=== PATIENT | male | born 1970 | race Caucasian/White ===

== ENCOUNTER 2022-03-08 14:24 | Emergency (ER) | payer OTHER, SELFPAY ==
[2022-03-08] VITALS (9 sets, daily range): BP systolic 119–167; BP diastolic 86–104; PULSE 58–71; RESP 18; TEMP 36.7; O2SAT 97–98; BMI 24.4
--- NOTE | 2022-03-08 15:16 | ED_ITS ---
HPI - Neuro Symptoms/Deficit General Chief Complaint: Neuro Symptoms/Altered Deficit Stated Complaint: Confusion episodes for 1 week Time Seen by Provider: 03/08/22 15:11 History of Present Illness HPI Narrative: 51-year-old male patient presents emergency department with complaints of n onspecific lethargy, troubles concentrating, intermittent headaches and fatigue for approximately 1 week. The patient reports episodes similar to as ?passing out? last for approximately 5-10 seconds and resolved without intervention. He has had no trauma or injury. He denies infectious concerns or complaints. The patient has had similar symptoms in the past approximately 8 years prior. At that time, the patient's records report that he was diagnosed with vestibular neuritis, however the patient reports that he was diagnosed with stroke. There appears to be some notes from the patient's primary to consider an EEG which does not appear to have been performed in the past due to insurance concerns. The patient denies chest pain, shortness a breath, abdominal pain, or nausea and vomiting. He reports that at the onset of symptoms he develops clamminess/sweat. He denies significant associations. See nursing notes for complete details. Related Data Previous Rx's Medication Instructions Recorded levetiracetam 750 mg tablet 750 mg PO BID #60 tabs 03/08/22 (Keppra) Allergies Allergy/AdvReac Type Severity Reaction Status Date / Time No Known Drug Allergies Allergy Verified 03/08/22 14:54 Review of Systems Const: Denies: fever, chills, fatigue or malaise ENMT: Denies: vertigo Cardio: Denies: chest pain, palpitations or shortness of breath with exertion Resp: Denies: shortness of breath or cough GI: Denies: abdominal pain, nausea, vomiting, diarrhea or constipation Musculo: Denies: muscle weakness Neuro: Denies: headache, numbness in extremities, weakness in extremities, lack of coordination, dizziness or vertigo Psych: Denies: anxiety Endo: Denies: fatigue PFSH PFSH Social History Smoking Status: Never smoker Do you use any of these nicotine containing products: None Second hand tobacco smoke exposure: No How often do you have a drink containing alcohol: 4 or more times a week How many standard drinks containing alcohol do you have on a typical day: 1 or 2 AUDIT-C Alcohol total score: 4 Non-prescribed substance use: denies use service: No Exam Const: Vital Signs, click to edit/add: Vital Signs - 24 hr 03/08/22 14:56 03/08/22 16:18 03/08/22 16:20 Temperature 98.1 F Pulse Rate [Right Pulse Oximeter] 71 Respiratory Rate 18 Blood Pressure [Ri ght Upper Arm] 167/104 H Pulse Oximetry 97 98 98 Oxygen Delivery Me thod Room Air Room Air Room Air 03/08/22 15:40 03/08/22 16:00 03/08/22 16:20 Temperature 98.1 F 98.1 F 98.1 F Pulse Rate [Right Pulse Oximeter] 71 62 61 Respiratory Rate 18 18 18 Blood Pressure [Ri ght Upper Arm] 131/88 147/87 H 128/89 Pulse Oximetry 98 98 98 Oxygen Delivery Me thod Room Air Room Air Room Air 03/08/22 16:40 03/08/22 17:00 03/08/22 17:20 Temperature 98.1 F 98.1 F 98.1 F Pulse Rate [Right Pulse Oximeter] 59 L 58 L 71 Respiratory Rate 18 18 18 Blood Pressure [Ri ght Upper Arm] 146/88 H 134/86 119/86 Pulse Oximetry 98 98 98 Oxygen Delivery Me thod Room Air Room Air Room Air Documenting provider has reviewed patient's vital signs: yes Common normals: no apparent distress, oriented x3, alert and well nourished General appearance: cooperative, comfortable, well kempt and well developed Orientation/consciousness: Yes awake, Yes oriented to person, Yes oriented to place and Yes oriented to time HENMT: Common normals: normocephalic Head and scalp: normal to inspection and normocephalic Eye: Common normals: PERRL and EOMs intact bilaterally Pupil: PERRL Neck & C-Spine: Common normals: full ROM and supple Resp: Common normals: normal respiratory effort, no use of accessory muscles and clear to auscultation bilaterally Effort & inspection: able to speak in complete sentences Auscultation: clear to auscultation bilaterally Cardio: Common normals: regular rate, regular rhythm, S1 normal heart sound, S2 normal heart sound, no gallops, no clicks and no murmurs Rate: regular rate Rhythm: regular rhythm Heart sounds: S1 normal and S2 normal GI: Common normals: Normal to inspection, nondistended, normoactive bowel sounds present, soft to palpation and non-tender Palpation: soft Extremity: Common normals: normal to inspection, full ROM, normal capillary refill and no clubbing, cyanosis or edema Neuro: [place] Coma Scale: document GCS findings Saman coma scale eye opening: Spontaneous (4) [place] coma scale verbal response: Orientated (5) Saman coma scale motor response: Obey commands (6) [place] coma scale total score: 15 Common normals: oriented x3, CN's II-XII intact bilaterally, moves all extremities, no focal motor deficits and no sensory deficits noted Sensorium/orientation: awake, alert, oriented to person, oriented to place and oriented to time Coordination/balance: [id number] test normal Coordination: [id number] test normal Psych: Common normals: mental status grossly normal, thought process normal, cooperative, affect normal, speech normal and activity/motor behavior normal Appearance: well kempt Speech: normal speech Thought process: normal thought process Insight: insight good Judgement: judgment good Skin: Common normals: no rashes or lesions noted General skin exam: no rashes or lesions noted Course Course Hospital Course: Paul arrived to the emergency department with complaints of neurologic symptoms and altered mental status. The patient has had multiple episodes today. Each episode has lasted about 10-15 seconds and has had multiple episodes while in the emergency department. The patient had to be encouraged to remain in the emergency department for evaluation and treatment as in between episodes his symptoms completely resolved. The symptoms are similar to his previous episode approximately 10 years prior, although not exactly the same. He was encouraged to actually complete the evaluation and workup as well as continue in the outpatient setting with the follow-up as recommended for Neurology. He is loaded with Keppra per consulting neurology's recommendation and given a prescription at discharge. The patient strongly encouraged to establish primary care physician as well as to follow up with Neurology to determine the etiology of these concerns. He is strongly advised to not operate machinery or drive while evaluation for potential seizure disorder is underway. Reevaluation(s) Reevaluation #1: Repeat episodes witnessed by nursing staff and patient's son. The patient had 10-15sec of blank stare with pulling at lines/pulse oximetry that resolved without intervention. During the episode the cardiac monitoring noted no changes in rhythm and the patient's oxygenation did not drop. Time: 16:56 Reevaluation #2: Patient reports resolution of symptoms. Patient's vital signs have remained stable. The results were discussed, and the patient verbalized understanding. Reasons for follow-up or return were discussed. Time: 19:37 Consultations Consultation #1: Neurology called to discuss episodes c/w partial complex seizure. Recommendations for treatment and follow-up. Time: 16:56 Vital Signs Vital signs: Initial Vital Signs Temperature 98.1 F 03/08/22 14:56 Temperature Source Temporal Artery Scan 03/08/22 14:56 Pulse Rate 71 03/08/22 14:56 Respiratory Rate 18 03/08/22 14:56 Blood Pressure 167/104 H 03/08/22 14:56 Blood Pressure Mean 125 03/08/22 14:56 Blood Pressure Position Sitting 03/08/22 14:56 Pulse Oximetry 97 03/08/22 14:56 Oxygen Delivery Method 03/08/22 14:56 Vital Signs Temperature 98.1 F 03/08/22 14:56 Pulse Rate 71 03/08/22 14:56 Respiratory Rate 18 03/08/22 14:56 Blood Pressure 167/104 H 03/08/22 14:56 Pulse Oximetry 97 03/08/22 14:56 Oxygen Delivery Method 03/08/22 14:56 Temperature 98.1 F 03/08/22 17:20 Pulse Rate 71 03/08/22 17:20 Respiratory Rate 18 03/08/22 17:20 Blood Pressure 119/86 03/08/22 17:20 Pulse Oximetry 98 03/08/22 17:20 Oxygen Delivery Method 03/08/22 17:20 MDM - Neuro Symptoms/Deficit MDM Narrative Medical decision making narrative: Life-threatening differential diagnoses include: CVA, CAD, infectious etiology, or electrolyte abnormalities. Additional differentials include but not limited to hepatic encephalopathy, seizure, vestibular neuritis, or migraine. Medical Records Attestation: I reviewed the patient's medical records. Lab Data Attestation: I reviewed the patient's lab results. Labs: Lab Results 03/08/22 03/08/22 Range/Units 16:15 16:15 WBC 8.15 (4.50-11.00) K/uL RBC 4.72 (4.30-5.90) m/uL Hgb 14.8 (13.5-17.5) gm/dL Hct 44.5 (37.0-53.0) % MCV 94 (80-100) fL MCH 31 (26-34) pg MCHC 33 (32-36) gm/dL RDW Coeff of Laila 12.4 (11.5-15.5) % Plt Count 215 (140-440) K/uL Neut % (Auto) 78.4 H (42.0-72.0) % Lymph % (Auto) 13.9 L (20-44) % Mercer % (Auto) 4.4 (0.0-11.0) % Eos % (Auto) 2.9 (0.0-7.0) % Baso % (Auto) 0.4 (0.0-3.0) % Neut # (Auto) 6.40 (1.7-7.0) K/uL Lymph # (Auto) 1.10 (0.90-2.90) K/uL Mercer # (Auto) 0.40 (0.00-0.90) K/UL Eos # (Auto) 0.24 (0.00-0.50) K/uL Baso # (Auto) 0.03 (0.00-0.30) K/uL Abs Immat Gran (auto) 0.00 (0.00-0.30) K/uL Sodium 138 (135-149) mmol/L Potassium 4.1 (3.6-5.1) mmol/L Chloride 106 (96-114) mmol/L Carbon Dioxide 28 (20-32) mmol/L BUN 17 (5-24) mg/dL Creatinine 0.9 (0.5-1.5) mg/dL Estimated Creat Clear 99.29 Estimated GFR 105 ml/min Glucose 99 (60-115) mg/dL Calcium 9.2 (8.4-10.6) mg/dL Total Bilirubin 0.4 (0.1-1.5) mg/dL AST 21 (12-35) U/L ALT 19 (4-50) U/L Alkaline Phosphatase 60 (40-150) U/L Total Protein 7.2 (6.0-8.3) g/dL Albumin 4.4 (3.3-5.0) g/dL ECG Data Attestation: I personally reviewed and interpreted this ECG as follows: (NSR with normal intervals and axis without significant ST-T wave changes. HR 66bpm.) Prior ECG tracings: not available for review Discharge Plan Discharge Clinical Impression: Complex partial seizure Patient Disposition: Home, Self-Care Condition: Improved Instructions: New-Onset Seizure in Adults (ED) Additional Instructions: Thank you for choosing [facility] for your care today. Your care today was on an emergency basis and is not intended to be a substitute for on-going care with your primary physician. I recommend calling primary care for follow- up in the next 3-5 days for follow-up as needed and to review any labs, testing, or imaging you have had in the Emergency Department. If new or worsening symptoms develop or you have any concerns in the meantime, please call your primary care clinic or return to the ER for re-evaluation. Activity Level: Other Activity Detail: Do not drive or operate machinery until reevaluated by neurology. Discharge Diet: Heart Healthy (2 gm sodium, low fat) Prescriptions: New levetiracetam [Keppra] 750 mg tablet 750 mg PO BID Qty: 60 2RF Follow Up/Referrals: Pranav Truong MD [Primary Care Provider] - Stand Alone Forms: [employer] Info Instructions
--- NOTE | 2022-03-08 15:48 | CRLHL7_ITS ---
For Patients: As a result of the Century Cures Act, medical imaging exams and procedure reports are released immediately into your electronic medical record. You may view this report before your referring provider. If you have questions, please contact your health care provider. INDICATION: Near-syncope. TECHNIQUE: CT head without contrast. COMPARISON: August 03, 2014. FINDINGS: CSF spaces: Within normal limits for age. Brain parenchyma and extra-axial spaces: The morrell-white differentiation is normal. Focal hyperdensity in the posterior parietal white matter on the left slightly increased in size since the prior exam from August 03, 2014 likely chronic benign calcification. Additional periventricular calcification along the posterior right lateral ventricle (/). No sign of mass, hemorrhage, or midline shift. No extra-axial fluid collection. Skull base and calvarium: The visualized paranasal sinuses and mastoid air cells demonstrate no acute or significant findings. The visualized orbits are grossly unremarkable. No skull fractures. IMPRESSION: No acute intracranial process identified. Please note that all CT scans at this facility use dose modulation, iterative reconstruction, and/or weight-based dosing when appropriate to reduce radiation dose to as low as reasonably achievable. Dictated by Maulik Villanueva MD @ 03/08/2022 4:51:29 PM (Electronically Signed)
[2022-03-08 16:23] LABS: Basophils Absolute Auto 0.03 K/uL (0.00-0.30); Basophils Percent Auto 0.4 % (0.0-3.0); Eosinophils Absolute Auto 0.24 K/uL (0.00-0.50); Eosinophils Percent Auto 2.9 % (0.0-7.0); Hematocrit 44.5 % (37.0-53.0); Hemoglobin* 14.8 gm/dL (13.5-17.5); Lymphocytes Percent Auto 13.9 % (20-44); Mean Corpuscular HGB Conc 33 gm/dL (32-36); Mean Corpuscular Hemoglobin 31 pg (26-34); Mean Corpuscular Volume 94 fL (80-100); Monocytes Percent Auto 4.4 % (0.0-11.0); Neutrophils Percent Auto 78.4 % (42.0-72.0); Platelet Count* 215 K/uL (140-440); RDW Coefficient of Variation % 12.4 % (11.5-15.5); Red Blood Count 4.72 m/uL (4.30-5.90); White Blood Count* 8.15 K/uL (4.50-11.00)
[2022-03-08 16:28] LABS: Slide Review Reflex No
[2022-03-08 16:48] LABS: Albumin* 4.4 g/dL (3.3-5.0); Chloride* 106 mmol/L (96-114); Sodium* 138 mmol/L (135-149)
[2022-03-08 16:49] LABS: Potassium* 4.1 mmol/L (3.6-5.1)
[2022-03-08 16:51] LABS: Alanine Aminotransferase* 19 U/L (4-50); Alkaline Phosphatase* 60 U/L (40-150); Aspartate Amino Transferase* 21 U/L (12-35); Bilirubin Total* 0.4 mg/dL (0.1-1.5); Blood Urea Nitrogen* 17 mg/dL (5-24); Carbon Dioxide* 28 mmol/L (20-32); Creatinine* 0.9 mg/dL (0.5-1.5); Est. Creatinine Clearance* 99.29; Estimated Glomerular Filt Rate 105 ml/min; Glucose* 99 mg/dL (60-115); Total Protein* 7.2 g/dL (6.0-8.3)
[2022-03-08 16:52] LABS: Calcium* 9.2 mg/dL (8.4-10.6)
--- NOTE | 2022-03-08 17:14 | CRLHL7_ITS ---
For Patients: As a result of the Century Cures Act, medical imaging exams and procedure reports are released immediately into your electronic medical record. You may view this report before your referring provider. If you have questions, please contact your health care provider. INDICATION: Altered mental status. TECHNIQUE: Multiplanar multisequence noncontrast MR images acquired through the brain as a seizure protocol. COMPARISON: CT brain 03/08/2022. FINDINGS: The ventricles and sulci are within normal limits for patient age. No mass effect or midline shift. Peripherally T2 hypointense, centrally T2 hyperintense lesion demonstrating susceptibility blooming within the deep left parietal white matter measuring 1.2 cm (series 3, image 25). Heterogeneous intralesional T1 shortening. No perilesional FLAIR hyperintensity. Two punctate T2 FLAIR hyperintensities in the right parietal white matter, nonspecific though most typical for sequelae of minimal chronic microvascular ischemic changes or migraine headaches. No recent intracranial hemorrhage or pathologic extra-axial fluid collection. No diffusion restriction to suggest acute infarction. The hippocampal formations are symmetric in size and signal intensity. No evidence for cortical dysplasia, cortical encephalomalacia, or encephalocele. The major arterial flow voids of the skullbase are preserved. The globes are symmetric. Minimal right maxillary sinus mucosal thickening. The mastoid air cells are clear. IMPRESSION: 1. No acute infarction, mass effect, or recent intracranial hemorrhage. 2. No cortical structural or migration abnormality. 3. Mixed signal intensity 1.2 cm lesion in the deep left parietal white matter, most compatible with a cavernous malformation. No perilesional edema. 4. Two punctate T2 FLAIR hyperintensities in the right parietal white matter, nonspecific though most typical for sequelae of minimal chronic microvascular ischemic changes or migraine headaches. Dictated by Flako Christensen MD @ 03/08/2022 6:32:45 PM (Electronically Signed)
== END 2022-03-08 20:00 | disposition home or self-care (01) ==
PROVIDERS: Emergency Provider Family Medicine; PCP Family Medicine
DX: G40.209 Localization-related (focal) (partial) symptomatic epilepsy and epileptic syndromes with complex partial seizures, not intractable, without status epilepticus (principal)
CPT/HCPCS: 36415; 70450; 70551; 80053; 80306; 81001; 82947; 85025; 93005; 96365; 99284; 99285; J1953

== ENCOUNTER 2022-05-06 11:10 | Outpatient (CLI) | payer OTHER, SELFPAY | END 2022-05-06 11:11 | disposition home or self-care (01) | PROVIDERS: PCP Family Medicine; Visit Provider Internal Medicine | DX: Z12.11 Encounter for screening for malignant neoplasm of colon (principal); K63.5 Polyp of colon | CPT/HCPCS: 45380; 88305; J2250; J3010 ==

== ENCOUNTER 2024-06-26 05:07 | Outpatient (CLI) | payer OTHER, SELFPAY | END 2024-06-26 05:08 | disposition home or self-care (01) | LOC: AMB 06-27 02:59 | PROVIDERS: PCP Family Medicine; Visit Provider Family Medicine | DX: G40.909 Epilepsy, unspecified, not intractable, without status epilepticus (principal) | CPT/HCPCS: A0425; A0427 ==

== ENCOUNTER 2024-06-26 05:47 | Emergency (ER) | payer OTHER, SELFPAY ==
[2024-06-26] VITALS (16 sets, daily range): BP systolic 116–148; BP diastolic 83–130; PULSE 70–82; RESP 16–18; TEMP 36.7; O2SAT 95–98; BMI 24.4
--- NOTE | 2024-06-26 05:56 | CRLHL7_ITS ---
For Patients: As a result of the Century Cures Act, medical imaging exams and procedure reports are released immediately into your electronic medical record. You may view this report before your referring provider. If you have questions, please contact your health care provider. INDICATION: Seizure. COMPARISON: 03/08/2022 CT and MRI TECHNIQUE: CT of the brain / head without intravenous contrast. Multiplanar axial, coronal, and sagittal reformats were reconstructed. FINDINGS: No intracranial hemorrhage. Focal hyperdensity in the periventricular white matter along the left posterior horn is similar to the exam in 2021. Prior MRI was consistent with a cavernous malformation and that is consistent with what is seen today. No acute or subacute cortically based infarct. No mass or mass effect. Normal ventricles. No skull fractures. No worrisome focal bone lesion. IMPRESSION: No acute findings. Unchanged hyperdensity in the left periventricular white matter consistent with a previously identified cavernous malformation. Please note that all CT scans at this facility use dose modulation, iterative reconstruction, and/or weight-based dosing when appropriate to reduce radiation dose to as low as reasonably achievable. Dictated by Gabby Veronica MD @ 06/26/2024 6:35:24 AM (Electronically Signed)
--- NOTE | 2024-06-26 05:56 | CRLHL7_ITS ---
For Patients: As a result of the Cures Act, medical imaging exams and procedure reports are released immediately into your electronic medical record. You may view this report before your referring provider. If you have questions, please contact your health care provider. INDICATION: Seizure, fall. COMPARISON: Same-day head CT TECHNIQUE: CT of the cervical spine without contrast. Multiplanar axial, coronal, and sagittal reformats were reconstructed. FINDINGS: No fracture. Normal alignment. [id number] multilevel disc degenerative change. Mild facet arthritis. No neural foraminal narrowing. No central canal stenosis. No destructive bony lesions. Lipoma in the right anterior neck anterior to the sternocleidomastoid muscles and superficial to the strap muscles. This measures about 4 x 2 x 5 cm. The internal fat is less complex than the adjacent subcutaneous fat. No solid nodular components identified. IMPRESSION: No acute or traumatic findings on cervical spine CT. Please note that all CT scans at this facility use dose modulation, iterative reconstruction, and/or weight-based dosing when appropriate to reduce radiation dose to as low as reasonably achievable. Dictated by Gabby Veronica MD @ 06/26/2024 6:38:23 AM (Electronically Signed)
--- NOTE | 2024-06-26 05:56 | CRLHL7_ITS ---
For Patients: As a result of the Cures Act, medical imaging exams and procedure reports are released immediately into your electronic medical record. You may view this report before your referring provider. If you have questions, please contact your health care provider. INDICATION: Fall COMPARISON: None. TECHNIQUE: Three view lumbar spine radiographs including AP, lateral, lateral lumbosacral spot. FINDINGS: Normal vertebral body segmentation and formation. No fracture. Normal alignment. Mild L5-S1 disc space narrowing. No facet arthritis. Normal bone mineralization. No focal bone lesions. Paraspinal soft tissues are normal. IMPRESSION: Mild disc degeneration in the lower lumbar spine. No acute findings. Dictated by Gabby Veronica MD @ 06/26/2024 6:42:31 AM (Electronically Signed)
--- NOTE | 2024-06-26 05:56 | CRLHL7_ITS ---
For Patients: As a result of the Century Cures Act, medical imaging exams and procedure reports are released immediately into your electronic medical record. You may view this report before your referring provider. If you have questions, please contact your health care provider. INDICATION: Seizure TECHNIQUE: 1 view chest radiograph COMPARISON: None. FINDINGS: Devices: None. Lung volumes are good. No focal or diffuse opacities. No pleural effusion. No pneumothorax. Heart size is normal. Osseous structures appear normal. IMPRESSION: Normal chest radiograph. Dictated by Gabby Veronica MD @ 06/26/2024 6:41:33 AM (Electronically Signed)
--- NOTE | 2024-06-26 05:57 | ED_ITS ---
HPI - Seizure General Time Seen by Provider: 05:57 <Lashell Byers MD - Last Filed: 06/26/24 07:27> Date Seen: 06/26/24 <Lashell Byers MD - Last Filed: 06/26/24 07:27> Chief Complaint: Seizure <Lashell Byers MD - Last Filed: 06/26/24 07:27> Stated Complaint: seizure <Lashell Byers MD - Last Filed: 06/26/24 07:27> Time Seen by Provider: 06/26/24 05:55 <Lashell Byers MD - Last Filed: 06/26/24 07:27> Source: patient, EMS and RN notes reviewed <Lashell Byers MD - Last Filed: 06/26/24 07:27> Mode of arrival: EMS <Lashell Byers MD - Last Filed: 06/26/24 07:27> Limitations: altered mental status <Lashell Byers MD - Last Filed: 06/26/24 07:27> History of Present Illness HPI Narrative: Paul is a 53-year-old gentleman with a history of seizure disorder however not tonic clonic in the past who comes to the emergency room via EMS after having a 10 minute seizure at home. Paul does not recall any of the events. EMS tells me they were called to the home and his states that she heard Paul call out and then a thump when he fell in the bathroom while getting ready for work. He then experience full body shaking with some foaming at the mouth. Upon EMS arrival they note that he was borderline combative but they were able to coax him into the ambulance, a blood sugar check was normal, they did give him Zofran 4 mg for nausea. Here in the emergency room his confusion that EMS described as somewhat clearing. He is able to tell us that his last seizure was a year ago. He is not currently on any medications for seizure disorder. He notes occasional alcohol use but nothing recent. He notes no injury recently. He denies any prodromal symptoms. At this time patient complains of low back pain, neck pain and headache. He denies visual changes or abdominal pain. Denies any numbness or tingling of the extremities. Movement definitely increases his discomfort and we put a C-collar on upon his arrival. <Lashell Byers MD - Last Filed: 06/26/24 07:27> Related Data Home Medications: Home Medications ?Medication ?Instructions ?Recorded ?Confirmed peg 3350-electrolytes 236 240 ml PO Q10M 04/08/22 gram-22.74 gram-6.74 gram-5.86 gram solution (Golytely) Previous Rx's ?Medication ?Instructions ?Recorded levetiracetam 750 mg tablet 750 mg PO BID #60 tabs 03/08/22 (Keppra) peg 3350-electrolytes 236 240 ml PO Q10M #4,000 mL 04/06/22 gram-22.74 gram-6.74 gram-5.86 gram solution (Golytely) <Lashell Byers MD - Last Filed: 06/26/24 07:27> Allergies/Adverse Reactions: Allergies Allergy/AdvReac Type Severity Reaction Status Date / Time No Known Drug Allergies Allergy Verified 04/06/22 15:08 <Lashell Byers MD - Last Filed: 06/26/24 07:27> Review of Systems Status of ROS: Reports: 10 or more systems reviewed and unremarkable except as noted in History and below <Lashell Byers MD - Last Filed: 06/26/24 07:27> [facility] Social History: Social History Smoking Status: Current every day smoker Do you use any of these nicotine containing products: None Second hand tobacco smoke exposure: No How often do you have a drink containing alcohol: 4 or more times a week How many standard drinks containing alcohol do you have on a typical day: 1 or 2 AUDIT-C Alcohol total score: 4 Non-prescribed substance use: denies use service: No <Lashell Byers MD - Last Filed: 06/26/24 07:27> Exam Narrative: Exam Narrative: Paul is awake alert obeying commands. He has a GCS of 14-15. Has some slight confusion when answering questions such as where he works. However, he was able to tell me what he his work entailed. He is almost entirely cleared and not confused during the 1st 5 minutes in the ED. His EOM is full pupils are small but reactive. Head is with blood noted behind the right ear. Face symmetrical. Speech is normal. Tongue is midline. No trauma in the oral cavity. Patient notes discomfort left paraspinous musculature. It is C-collar is in place. No significant midline tenderness. Trachea is midline. Heart with regular rate and rhythm and lungs are clear. Abdomen is soft nontender. No significant discomfort with palpation over the thoracic or lumbar spine. No skin changes ecchymosis or superficial abrasion. Pelvis is stable. Lower extremities without edema. Moving all extremities. <Lashell Byers MD - Last Filed: 06/26/24 07:27> Const: Vital Signs, click to edit/add: Vital Signs - 24 hr 06/26/24 05:57 06/26/24 06:47 06/26/24 06:48 Temperature 98.1 F Pulse Rate 81 71 Pulse Rate [Pulse Oximeter] 82 Respiratory Rate 16 16 Blood Pressure 148/130 H Blood Pressure [Ri ght Upper Arm] 144/94 H Pulse Oximetry 96 97 97 Oxygen Delivery Me thod Room Air 06/26/24 07:00 06/26/24 07:02 06/26/24 07:03 Temperature Pulse Rate 72 73 74 Pulse Rate [Pulse Oximeter] Respiratory Rate 18 Blood Pressure 131/88 Blood Pressure [Ri ght Upper Arm] Pulse Oximetry 98 97 98 Oxygen Delivery Me thod 06/26/24 07:15 06/26/24 07:17 06/26/24 07:30 Temperature Pulse Rate 70 70 75 Pulse Rate [Pulse Oximeter] Respiratory Rate Blood Pressure 116/86 Blood Pressure [Ri ght Upper Arm] Pulse Oximetry 95 95 97 Oxygen Delivery Me thod 06/26/24 07:32 06/26/24 07:45 06/26/24 07:47 Temperature Pulse Rate 73 75 71 Pulse Rate [Pulse Oximeter] Respiratory Rate Blood Pressure 132/93 H 130/83 Blood Pressure [Ri ght Upper Arm] Pulse Oximetry 96 95 95 Oxygen Delivery Me thod 06/26/24 08:00 06/26/24 08:02 06/26/24 08:15 Temperature Pulse Rate 72 70 73 Pulse Rate [Pulse Oximeter] Respiratory Rate Blood Pressure 135/94 H Blood Pressure [Ri ght Upper Arm] Pulse Oximetry 97 98 97 Oxygen Delivery Me thod 06/26/24 08:17 Temperature Pulse Rate 73 Pulse Rate [Pulse Oximeter] Respiratory Rate Blood Pressure 128/94 H Blood Pressure [Ri ght Upper Arm] Pulse Oximetry 95 Oxygen Delivery Me thod <Lashell Byers MD - Last Filed: 06/26/24 07:27> Vital Signs, click to edit/add: Vital Signs - 24 hr 06/26/24 05:57 06/26/24 06:47 06/26/24 06:48 Temperature 98.1 F Pulse Rate 81 71 Pulse Rate [Pulse Oximeter] 82 Respiratory Rate 16 16 Blood Pressure 148/130 H Blood Pressure [Ri ght Upper Arm] 144/94 H Pulse Oximetry 96 97 97 Oxygen Delivery Me thod Room Air 06/26/24 07:00 06/26/24 07:02 06/26/24 07:03 Temperature Pulse Rate 72 73 74 Pulse Rate [Pulse Oximeter] Respiratory Rate 18 Blood Pressure 131/88 Blood Pressure [Ri ght Upper Arm] Pulse Oximetry 98 97 98 Oxygen Delivery Me thod 06/26/24 07:15 06/26/24 07:17 06/26/24 07:30 Temperature Pulse Rate 70 70 75 Pulse Rate [Pulse Oximeter] Respiratory Rate Blood Pressure 116/86 Blood Pressure [Ri ght Upper Arm] Pulse Oximetry 95 95 97 Oxygen Delivery Me thod 06/26/24 07:32 06/26/24 07:45 06/26/24 07:47 Temperature Pulse Rate 73 75 71 Pulse Rate [Pulse Oximeter] Respiratory Rate Blood Pressure 132/93 H 130/83 Blood Pressure [Ri ght Upper Arm] Pulse Oximetry 96 95 95 Oxygen Delivery Me thod 06/26/24 08:00 06/26/24 08:02 06/26/24 08:15 Temperature Pulse Rate 72 70 73 Pulse Rate [Pulse Oximeter] Respiratory Rate Blood Pressure 135/94 H Blood Pressure [Ri ght Upper Arm] Pulse Oximetry 97 98 97 Oxygen Delivery Me thod 06/26/24 08:17 Temperature Pulse Rate 73 Pulse Rate [Pulse Oximeter] Respiratory Rate Blood Pressure 128/94 H Blood Pressure [Ri ght Upper Arm] Pulse Oximetry 95 Oxygen Delivery Me thod <Sukhi Hodge MD - Last Filed: 06/26/24 10:56> Documenting provider has reviewed patient's vital signs: yes <Lashell Byers MD - Last Filed: 06/26/24 07:27> Course Course ED Course: At this time patient has had a seizure with description resembling tonic clonic. Consequences of the seizure this morning include a fall with headache neck ache and backache. Have ordered CTs of the head neck and x-rays of the chest and lower back. Would like a CBC, comprehensive panel, EtOH, urinalysis, drug screen. Patient is in agreement with this plan. Have also added EKG, troponin and cardiac monitoring to rule out any evidence of arrhythmia. <Lashell Byers MD - Last Filed: 06/26/24 07:27> Reevaluation(s) Reevaluation #1: Patient noted to be very nauseated and complaining of pain. CTs appear to be reassuring. Will give morphine 2 mg and Ativan 0.5 mg at this time. <Lashell Byers MD - Last Filed: 06/26/24 07:27> Time of Reevaluation #2: 08:06 <Sukhi Hodge MD - Last Filed: 06/26/24 10:56> Reevaluation #2: CT head and cervical spine without contrast showed no acute findings, XR chest PA and lateral showed no acute cardiopulmonary process, XR lumbar spine showed degenerative changes but no acute fractures. CBC showed no leukocytosis, no anemia, comprehensive metabolic panel showed normal electrolytes and renal function, point of care troponin 0.00, serum ETOH level negative, urine drug screen pending, EKG showed no acute ST changes, patient to be loaded up with Keppra 1500 mg IV, he also received 50 mg IV Toradol for his muscular pain likely secondary to recent tonic clonic seizure and likely elevated lactic acid levels, 0.9 normal saline bolus to be given. 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 <Sukhi Hodge MD - Last Filed: 06/26/24 10:56> Time of Reevaluation #3: 08:55 <Sukhi Hodge MD - Last Filed: 06/26/24 10:56> Reevaluation #3: Unable to talk to Neurology at this time, due to time constraints of over 2 hours, did reach out to [facility] however they would not be able to be consulted since he is not a [facility] patient, will reach out to [facility]. Patient family updated. Patient's magnesium level within normal limits as well as his lactic acid level. Spoke with [facility], recommendations were for outpatient EEG and MR, restart Keppra 750 mg b.i.d., with seizure precautions. Patient still seems confused. May consider admission for observation. <Sukhi Hodge MD - Last Filed: 06/26/24 10:56> Consultations Consultation #1: Was able to speak with [facility], Dr. Ingram, since patient still seems confused consideration for further workup with EEG and MRI sooner than outpatient, this was discussed with patient and family and they were in agreement this plan. <Sukhi Hodge MD - Last Filed: 06/26/24 10:56> Time: 09:35 <Sukhi Hodge MD - Last Filed: 06/26/24 10:56> Consultation #2: Was able to speak with hospitalist Dr. Luis MONTGOMERY, he accepts care of the patient to a [facility] surgery floor bed, [facility], patient to go via ground ambulance, this was discussed with patient, family within a were in agreement. <Sukhi Hodge MD - Last Filed: 06/26/24 10:56> Time: 10:54 <Sukhi Hodge MD - Last Filed: 06/26/24 10:56> Vital Signs Vital signs: Initial Vital Signs Temperature 98.1 F 06/26/24 05:57 Temperature Source Temporal Artery Scan 06/26/24 05:57 Pulse Rate 82 06/26/24 05:57 Respiratory Rate 16 06/26/24 05:57 Blood Pressure 144/94 H 06/26/24 05:57 Blood Pressure Mean 110 H 06/26/24 05:57 Blood Pressure Position Sitting 06/26/24 05:57 Pulse Oximetry 96 06/26/24 05:57 Oxygen Delivery Method Room Air 06/26/24 05:57 Vital Signs Temperature 98.1 F 06/26/24 05:57 Pulse Rate 82 06/26/24 05:57 Respiratory Rate 16 06/26/24 05:57 Blood Pressure 144/94 H 06/26/24 05:57 Pulse Oximetry 96 06/26/24 05:57 Oxygen Delivery Method Room Air 06/26/24 05:57 Temperature 98.1 F 06/26/24 05:57 Pulse Rate 73 06/26/24 08:17 Respiratory Rate 18 06/26/24 07:02 Blood Pressure 128/94 H 06/26/24 08:17 Pulse Oximetry 95 06/26/24 08:17 Oxygen Delivery Method Room Air 06/26/24 05:57 <Lashell Byers MD - Last Filed: 06/26/24 07:27> Initial Vital Signs Temperature 98.1 F 06/26/24 05:57 Temperature Source Temporal Artery Scan 06/26/24 05:57 Pulse Rate 82 06/26/24 05:57 Respiratory Rate 16 06/26/24 05:57 Blood Pressure 144/94 H 06/26/24 05:57 Blood Pressure Mean 110 H 06/26/24 05:57 Blood Pressure Position Sitting 06/26/24 05:57 Pulse Oximetry 96 06/26/24 05:57 Oxygen Delivery Method Room Air 06/26/24 05:57 Vital Signs Temperature 98.1 F 06/26/24 05:57 Pulse Rate 82 06/26/24 05:57 Respiratory Rate 16 06/26/24 05:57 Blood Pressure 144/94 H 06/26/24 05:57 Pulse Oximetry 96 06/26/24 05:57 Oxygen Delivery Method Room Air 06/26/24 05:57 Temperature 98.1 F 06/26/24 05:57 Pulse Rate 73 06/26/24 08:17 Respiratory Rate 18 06/26/24 07:02 Blood Pressure 128/94 H 06/26/24 08:17 Pulse Oximetry 95 06/26/24 08:17 Oxygen Delivery Method Room Air 06/26/24 05:57 <Sukhi Hodge MD - Last Filed: 06/26/24 10:56> Medications Administered Medications: Discontinued Medications Generic Name Dose Route Start Last Admin Trade Name Freq PRN Reason Stop Dose Admin Levetiracetam 1,500 mg/ Sodium 115 mls @ 460 mls/hr 06/26/24 07:46 06/26/24 08:28 Chloride IVPB 06/26/24 07:47 Infused ONCE ONE Infusion Sodium Chloride 1,000 mls @ 1,000 mls/hr 06/26/24 08:04 06/26/24 08:11 0.9 % Sodium Chloride 1000 Ml IV 06/26/24 09:03 1,000 mls/hr .Q1H FORD Administration Ketorolac Tromethamine 15 mg 06/26/24 07:49 06/26/24 07:58 Ketorolac 15 Mg/Ml Inj IVP 06/26/24 07:50 15 mg ONCE ONE Administration Lorazepam 0.5 mg 06/26/24 06:27 06/26/24 06:31 Lorazepam 2 Mg/Ml Inj IVP 06/26/24 06:28 0.5 mg ONCE ONE Administration Morphine Sulfate 2 mg 06/26/24 06:27 06/26/24 06:30 Morphine 2 Mg/Ml Inj IVP 06/26/24 06:28 2 mg ONCE ONE Administration Morphine Sulfate 4 mg 06/26/24 09:10 06/26/24 09:16 Morphine 4 Mg/Ml Inj IVP 06/26/24 09:11 4 mg ONCE ONE Administration <Lashell Byers MD - Last Filed: 06/26/24 07:27> Discontinued Medications Generic Name Dose Route Start Last Admin Trade Name Freq PRN Reason Stop Dose Admin Levetiracetam 1,500 mg/ Sodium 115 mls @ 460 mls/hr 06/26/24 07:46 06/26/24 08:28 Chloride IVPB 06/26/24 07:47 Infused ONCE ONE Infusion Sodium Chloride 1,000 mls @ 1,000 mls/hr 06/26/24 08:04 06/26/24 08:11 0.9 % Sodium Chloride 1000 Ml IV 06/26/24 09:03 1,000 mls/hr .Q1H FORD Administration Ketorolac Tromethamine 15 mg 06/26/24 07:49 06/26/24 07:58 Ketorolac 15 Mg/Ml Inj IVP 06/26/24 07:50 15 mg ONCE ONE Administration Lorazepam 0.5 mg 06/26/24 06:27 06/26/24 06:31 Lorazepam 2 Mg/Ml Inj IVP 06/26/24 06:28 0.5 mg ONCE ONE Administration Morphine Sulfate 2 mg 06/26/24 06:27 06/26/24 06:30 Morphine 2 Mg/Ml Inj IVP 06/26/24 06:28 2 mg ONCE ONE Administration Morphine Sulfate 4 mg 06/26/24 09:10 06/26/24 09:16 Morphine 4 Mg/Ml Inj IVP 06/26/24 09:11 4 mg ONCE ONE Administration <Sukhi Hodge MD - Last Filed: 06/26/24 10:56> MDM - Seizure MDM Narrative Medical decision making narrative: 1. Seizure 2. Ear trauma 3. Headache 4. Neck pain 5. Low back pain 6. Disposition <Lashell Byers MD - Last Filed: 06/26/24 07:27> Medical Records Attestation: I reviewed the patient's medical records. <Lashell Byers MD - Last Filed: 06/26/24 07:27> Lab Data Attestation: I reviewed the patient's lab results. <Lashell Byers MD - Last Filed: 06/26/24 07:27> Labs: Lab Results 06/26/24 06/26/24 06/26/24 Range/Units 06:32 06:33 09:02 WBC 8.24 (4.50-11.00) K/uL RBC 4.97 (4.30-5.90) m/uL Hgb 15.6 (13.5-17.5) gm/dL Hct 46.0 (37.0-53.0) % MCV 93 (80-100) fL MCH 31 (26-34) pg MCHC 34 (32-36) gm/dL RDW Coeff of Laila 12.5 (11.5-15.5) % Plt Count 241 (140-440) K/uL Neut % (Auto) 75.8 H (42.0-72.0) % Lymph % (Auto) 12.7 L (20-44) % [place] % (Auto) 4.6 (0.0-11.0) % Eos % (Auto) 4.5 (0.0-7.0) % Baso % (Auto) 0.6 (0.0-3.0) % Neut # (Auto) 6.20 (1.7-7.0) K/uL Lymph # (Auto) 1.00 (0.90-2.90) K/uL [place] # (Auto) 0.40 (0.00-0.90) K/UL Eos # (Auto) 0.37 (0.00-0.50) K/uL Baso # (Auto) 0.05 (0.00-0.30) K/uL Abs Immat Gran (auto) 0.15 (0.00-0.30) K/uL Imm/Tot Granulo (auto) 1.8 % Sodium 134 L (135-149) mmol/L Potassium 5.1 (3.6-5.1) mmol/L Chloride 101 (96-114) mmol/L Carbon Dioxide 24 (20-32) mmol/L Anion Gap 9 (7-15) mEq/L BUN 19 (7-30) mg/dL Creatinine 1.0 (0.5-1.5) mg/dL Estimated Creat Clear 90.24 Estimated GFR 91 ml/min Glucose 176 H (60-115) mg/dL Lactate 1.0 (0.5-1.9) mmol/L Calcium 9.9 (8.4-10.6) mg/dL Magnesium 2.2 (1.5-2.6) mg/dL Total Bilirubin 0.6 (0.1-1.5) mg/dL AST 32 (12-35) U/L ALT 47 (4-50) U/L Alkaline Phosphatase 62 (40-150) U/L Total Protein 7.3 (6.0-8.3) g/dL Albumin 4.6 (3.3-5.0) g/dL Ethyl Alcohol < 0.01 L (0.01-0.03) % POC Troponin I 0.00 L (0.01-0.04) ng/ml <Lashell Byers MD - Last Filed: 06/26/24 07:27> Lab Results 06/26/24 06/26/24 06/26/24 Range/Units 06:32 06:33 09:02 WBC 8.24 (4.50-11.00) K/uL RBC 4.97 (4.30-5.90) m/uL Hgb 15.6 (13.5-17.5) gm/dL Hct 46.0 (37.0-53.0) % MCV 93 (80-100) fL MCH 31 (26-34) pg MCHC 34 (32-36) gm/dL RDW Coeff of Laila 12.5 (11.5-15.5) % Plt Count 241 (140-440) K/uL Neut % (Auto) 75.8 H (42.0-72.0) % Lymph % (Auto) 12.7 L (20-44) % [place] % (Auto) 4.6 (0.0-11.0) % Eos % (Auto) 4.5 (0.0-7.0) % Baso % (Auto) 0.6 (0.0-3.0) % Neut # (Auto) 6.20 (1.7-7.0) K/uL Lymph # (Auto) 1.00 (0.90-2.90) K/uL [place] # (Auto) 0.40 (0.00-0.90) K/UL Eos # (Auto) 0.37 (0.00-0.50) K/uL Baso # (Auto) 0.05 (0.00-0.30) K/uL Abs Immat Gran (auto) 0.15 (0.00-0.30) K/uL Imm/Tot Granulo (auto) 1.8 % Sodium 134 L (135-149) mmol/L Potassium 5.1 (3.6-5.1) mmol/L Chloride 101 (96-114) mmol/L Carbon Dioxide 24 (20-32) mmol/L Anion Gap 9 (7-15) mEq/L BUN 19 (7-30) mg/dL Creatinine 1.0 (0.5-1.5) mg/dL Estimated Creat Clear 90.24 Estimated GFR 91 ml/min Glucose 176 H (60-115) mg/dL Lactate 1.0 (0.5-1.9) mmol/L Calcium 9.9 (8.4-10.6) mg/dL Magnesium 2.2 (1.5-2.6) mg/dL Total Bilirubin 0.6 (0.1-1.5) mg/dL AST 32 (12-35) U/L ALT 47 (4-50) U/L Alkaline Phosphatase 62 (40-150) U/L Total Protein 7.3 (6.0-8.3) g/dL Albumin 4.6 (3.3-5.0) g/dL Ethyl Alcohol < 0.01 L (0.01-0.03) % POC Troponin I 0.00 L (0.01-0.04) ng/ml <Sukhi Hodge MD - Last Filed: 06/26/24 10:56> Imaging Data CT scan - head: Attestation: I have reviewed the pertinent imaging results. <Lashell Byers MD - Last Filed: 06/26/24 07:27> Radiologist's impression: No intracranial hemorrhage. Focal hyperdensity in the periventricular white matter along the left posterior horn is similar to the exam in 2021. Prior MRI was consistent with a cavernous malformation and that is consistent with what is seen today. No acute or subacute cortically based infarct. No mass or mass effect. Normal ventricles. No skull fractures. No worrisome focal bone lesion. IMPRESSION: No acute findings. Unchanged hyperdensity in the left periventricular white matter consistent with a previously identified cavernous malformation. <Lashell Byers MD - Last Filed: 06/26/24 07:27> Cervical spine CT: Attestation: I have reviewed the pertinent imaging results. <Lashell Byers MD - Last Filed: 06/26/24:> Radiologist's impression: Normal alignment. [id number] multilevel disc degenerative change. Mild facet arthritis. No neural foraminal narrowing. No central canal stenosis. No destructive bony lesions. Lipoma in the right anterior neck anterior to the sternocleidomastoid muscles and superficial to the strap muscles. This measures about 4 x 2 x 5 cm. The internal fat is less complex than the adjacent subcutaneous fat. No solid nodular components identified. IMPRESSION: No acute or traumatic findings on cervical spine CT. <Lashell Byers MD - Last Filed: 06/26/24:27> Chest x-ray: Attestation: I have reviewed the pertinent imaging results. <Lashell Byers MD - Last Filed: 06/26/24 07:27> Radiologist's impression: Lung volumes are good. No focal or diffuse opacities. No pleural effusion. No pneumothorax. Heart size is normal. Osseous structures appear normal. IMPRESSION: Normal chest radiograph. <Lashell Byers MD - Last Filed: 06/26/24 07:27> Lumbar spine x-ray: Attestation: I have reviewed the pertinent imaging results. <Lashell Byers MD - Last Filed: 06/26/24:27> My impression: No obvious fracture <Lashell Byers MD - Last Filed: 06/26/24:27> Radiologist's impression: Normal vertebral body segmentation and formation. No fracture. Normal alignment. Mild L5-S1 disc space narrowing. No facet arthritis. Normal bone mineralization. No focal bone lesions. Paraspinal soft tissues are normal. IMPRESSION: Mild disc degeneration in the lower lumbar spine. No acute findings. <Lashell Byers MD - Last Filed: 06/26/24 07:27> ECG Data Attestation: I personally reviewed and interpreted this ECG as follows: <Lashell Byers MD - Last Filed: 06/26/24 07:27> ECG interpretation date: 06/26/24 <Lashell Byers MD - Last Filed: 06/26/24 07:27> Discharge Plan Discharge Clinical Impression: Generalized seizure <Lashell Byers MD - Last Filed: 06/26/24 07:27> Patient Disposition: [facility] <Lashell Byers MD - Last Filed: 06/26/24 07:27>
[2024-06-26] MEDS: MORPHINE 2 MG/ML inj IVP (06:30)
[2024-06-26] MEDS: LORazepam 2 MG/ML inj 0.5 MG IVP (06:31)
[2024-06-26 06:53] LABS: Basophils Absolute Auto 0.05 K/uL (0.00-0.30); Basophils Percent Auto 0.6 % (0.0-3.0); Eosinophils Absolute Auto 0.37 K/uL (0.00-0.50); Eosinophils Percent Auto 4.5 % (0.0-7.0); Hemoglobin* 15.6 gm/dL (13.5-17.5); Immature Granulocytes Abs Auto 0.15 K/uL (0.00-0.30); Immature Granulocytes Pct Auto 1.8 %; Lymphocytes Percent Auto 12.7 % (20-44); Mean Corpuscular HGB Conc 34 gm/dL (32-36); Mean Corpuscular Hemoglobin 31 pg (26-34); Mean Corpuscular Volume 93 fL (80-100); Monocytes Percent Auto 4.6 % (0.0-11.0); Neutrophils Percent Auto 75.8 % (42.0-72.0); Platelet Count* 241 K/uL (140-440); RDW Coefficient of Variation % 12.5 % (11.5-15.5); Red Blood Count 4.97 m/uL (4.30-5.90); White Blood Count* 8.24 K/uL (4.50-11.00)
[2024-06-26 06:59] LABS: Albumin* 4.6 g/dL (3.3-5.0); Chloride* 101 mmol/L (96-114); Sodium* 134 mmol/L (135-149)
[2024-06-26 07:01] LABS: Est. Creatinine Clearance* 90.24; Estimated Glomerular Filt Rate 91 ml/min; Slide Review Reflex No
[2024-06-26 07:02] LABS: Alanine Aminotransferase* 47 U/L (4-50); Alkaline Phosphatase* 62 U/L (40-150); Anion Gap 9 mEq/L (7-15); Aspartate Amino Transferase* 32 U/L (12-35); Bilirubin Total* 0.6 mg/dL (0.1-1.5); Blood Urea Nitrogen* 19 mg/dL (7-30); Carbon Dioxide* 24 mmol/L (20-32); Potassium* 5.1 mmol/L (3.6-5.1); Total Protein* 7.3 g/dL (6.0-8.3)
[2024-06-26 07:03] LABS: Calcium* 9.9 mg/dL (8.4-10.6); Ethanol* < 0.01 % (0.01-0.03); Glucose* 176 mg/dL (60-115)
[2024-06-26] MEDS: KETOROLAC 15 MG/ML inj IVP (07:58)
[2024-06-26] MEDS: 0.9 % SODIUM CHLORIDE 1000 ml 1,000 ML IV (08:11)
[2024-06-26] MEDS: MORPHINE 4 MG/ML INJ IVP (09:16)
[2024-06-26 09:34] LABS: Magnesium* 2.2 mg/dL (1.5-2.6)
== END 2024-06-26 11:44 | disposition short-term general hospital (02) ==
PROVIDERS: Student in an Organized Health Care Education/Training Program; Emergency Provider Family Medicine; PCP Family Medicine
DX: G40.89 Other seizures (principal)
CPT/HCPCS: 36415; 70450; 71045; 72100; 72125; 80053; 80177; 80306; 81001; 82077; 83605; 83735; 84484; 85025; 93005; 96365; 96374; 96375; 99284; 99285; J1885; J1953; J2060; J2270; J7030

== ENCOUNTER 2024-06-26 11:36 | Outpatient (CLI) | payer OTHER, SELFPAY | END 2024-06-26 11:37 | disposition home or self-care (01) | LOC: AMB 06-27 23:24 | PROVIDERS: PCP Family Medicine; Visit Provider Family Medicine | DX: G40.909 Epilepsy, unspecified, not intractable, without status epilepticus (principal) | CPT/HCPCS: A0425; A0427 ==